=== PATIENT | female | born 1930 | race Caucasian/White ===

== ENCOUNTER 2017-11-23 16:30 | Inpatient (IN) ==
[2017-11-23] MEDS ORDERED: SALINE FLUSH 10ml SYRINGE IVF PRN (17:24)
[2017-11-23] MEDS ORDERED: NS 1,000 ML IV ONE (17:24)
[2017-11-23] MEDS ORDERED: FentaNYL 100 MCG/2 ML INJECTION IVP ONE (17:24)
[2017-11-23] MEDS ORDERED: ONDANSETRON 4 MG/2 ML INJECTION IVP ONE (17:24)
--- NOTE | 2017-11-23 17:25 | Emergency Department Report ---
Nausea/Vomiting/Diarrhea HPI - General Chief complaint: Nausea/Vomiting/Diarrhea <Osman Abdul - 11/23/17 20:14> Stated complaint: weakness, nausea <Osman Abdul - 11/23/17 20:14> Time Seen by Provider: 11/23/17 17:24 <FrankoOsman Sorensen 11/23/17 20:14> Source: patient <Ayden Alcocer - 11/23/17 17:42> Mode of arrival: ambulatory <Ayden Alcocer - 11/23/17 17:42> Limitations: no limitations <Ayden Alcocer - 11/23/17 17:42> - History of Present Illness HPI Narrative: Patient is an 87-year-old female presents the ER for evaluation of diarrhea and nausea and vomiting. Patient has been in her usual state of good health today, approximately 2 hours prior to arrival patient's developed originally diarrhea with some abdominal cramping, and is now on associated nausea and vomiting. Patient hasn't eating anything that somebody else's not eaten, no fevers no chills no other original signs or symptoms. EMS was called and patient was brought to the ER for evaluation <Ayden Alcocer - 11/23/17 17:42> - Related Data Home Medications Medication Instructions Recorded Confirmed Metoprolol Succinate [Toprol Xl] 25 mg PO DAILY 11/23/17 11/23/17 Triamterene/Hctz 37.5/25 Tab 1 tab PO DAILY 11/23/17 11/23/17 [MAXZIDE-25 eqv] <FrankoOsman - 11/23/17 20:14> Allergies Allergy/AdvReac Type Severity Reaction Status Date / Time Sulfa (Sulfonamide Allergy Mild Verified 11/23/17 16:50 Antibiotics) <FrankoOsman Sorensen - 11/23/17 20:14> Review of Systems Constitutional: Reports: weakness. Denies: fever, chills <Lynne Alcocern Marck - 11/23/17 18:15> Eyes: Denies: eye discharge, vision change <Lynne Alcocern Marck - 11/23/17 18:15> ENT: Denies: ear pain, throat pain, dental pain <Lynne Alcocern Marck - 11/23/17 18 :15> Cardiovascular: Denies: chest pain, palpitations, dyspnea on exertion <Ayden Alcocer Q - 11/23/17 18:15> Respiratory: Denies: cough, dyspnea, wheezes <Ayden Alcocer Q - 11/23/17 18:15 > Gastrointestinal: Reports: abdominal pain, nausea, vomiting, diarrhea, hematochezia <Ayden Alcocer Q - 11/23/17 18:15> Genitourinary: Reports: dysuria. Denies: frequency <Ayden Alcocer Q - 18:15> Musculoskeletal: Denies: back pain <Ayden Alcocer Q - 11/23/17 18:15> Neurological: Denies: headache, weakness, numbness <Ayden Alcocer Q - 18:15> Psychiatric: Denies: anxiety, depression <Ayden Alcocer Q - 11/23/17 18:15> Endocrine: Denies: fatigue, heat or cold intolerance <Ayden Alcocer Q - 18:15> Hematological/Lymphatic: Denies: easy bleeding <Ayden Alcocer Q - 11/23/17 18: 15> Allergic/Immunologic: Denies: facial swelling <Ayden Alcocer Q - 11/23/17 18: 15> [facility] Patient Stated Medical History Cataracts Yes Hypertension Yes Osteoarthritis Yes <Osman Abdul H - 11/23/17 20:14> - Social History Smoking status: Never smoker <Ayden Alcocer Q - 11/23/17 18:15> Substance use type: does not use <Ayden Alcocer Q - 11/23/17 18:15> Alcohol intake frequency: does not drink <Ayden Alcocer Q - 11/23/17 18:15> Physical Exam - General General appearance: alert, in no apparent distress <Ayden Alcocer Q - 18:15> - Eye Eye exam: Present: PERRL, EOMI <Ayden Alcocer Q - 11/23/17 18:15> - ENT ENT exam: Present: normal oropharynx, mucous membranes moist, TM's normal bilaterally <Ayden Alcocer Q - 11/23/17 18:15> - Neck Neck exam: Present: full ROM, trachea midline. Absent: tenderness <Ayden Alcocer Q - 11/23/17 18:15> - Chest Chest inspection: Present: symmetric chest wall rise. Absent: tenderness < Lynne Alcocern Q - 11/23/17 18:15> - Respiratory Respiratory exam: Present: normal lung sounds bilaterally. Absent: respiratory distress, wheezes, stridor <Lynne Alcocern Q - 11/23/17 18:15> - Cardiovascular Cardiovascular exam: Present: regular rate, normal rhythm, normal heart sounds <Lynne Alcocern Q - 11/23/17 18:15> - Abdominal Exam Abdominal exam: Present: soft, distention (mild diffuse tenderness located in the left lower quadrant), tenderness, normal bowel sounds <Lynne Alcocern Q - 11/23/17 18:15> Abdominal tenderness: Present: LLQ <Lynne Alcocern Q - 11/23/17 18:15> - Back Exam Back exam: Present: full ROM <Ayden Alcocer Q - 11/23/17 18:15> - Skin Skin exam: Present: warm, dry <Ayden Alcocer Q - 11/23/17 18:15> - Neurological Exam Neurological exam: Present: alert, oriented X3 <Ayden Alcocer Q - 11/23/17 18: 15> - Psychiatric Psychiatric exam: Present: normal affect, normal mood <Ayden Alcocer Q - 11/23 18:15> Course Vital Signs Temperature 97.7 F 11/23/17 16:40 Pulse Rate 59 L 11/23/17 16:40 Respiratory Rate 20 11/23/17 16:40 Blood Pressure 122/60 11/23/17 16:40 Pulse Oximetry 96 11/23/17 16:40 Temperature 97.7 F 11/23/17 16:40 Pulse Rate 72 11/23/17 19:33 Respiratory Rate 20 11/23/17 17:37 Blood Pressure 103/51 11/23/17 19:33 Pulse Oximetry 93 11/23/17 19:33 <Osman Abdul - 11/23/17 20:14> Nausea/Vomiting/Diarrhea - [facility] Narrative Medical decision making narrative: CBC shows elevated white blood cell count with mild left shift and bands and neutrophils. CMP is essentially normal, UA shows obvious UTI. CT scan shows significant colonic wall and mucosal thickening with adjacent pericolic stranding of the colon from the level of the splenic flexure through the sigmoid colon. Patient does have visible diverticula but they do not appear to be involved. No obvious signs of abscess or free fluid. Case is discussed with Dr. Lio Jiang, we will start on Flagyl and Cipro, IV fluids, and continue therapy as an inpatient <Osman Abdul - 11/23/17 20:14> - Medical Records Attestation: I reviewed the patient's medical records. <Ayden Alcocer Q - 18:15> - Lab Data Attestation: I reviewed the patient's lab results. <Ayden Alcocer Q - 18:15> Result diagrams: 11/23/17 18:37 11/23/17 18:37 <AbdulOsman patel - 11/23/17 20:14> Lab Results 11/23/17 11/23/17 11/23/17 Range/Units 18:37 18:37 19:14 WBC 14.6 H (4.5-11.0) T/MM3 RBC 4.10 (4.00-5.20) M/MM3 Hgb 12.4 (12-16) GM/DL Hct 37.9 (36-46) % MCV 92.4 (80-100) UM3 MCH 30.2 (26-34) UUG MCHC 32.7 (31-37) GM/DL RDW Std Deviation 46.3 (36.9-50.2) FL Plt Count 254 (130-400) T/MM3 MPV 9.7 (9.4-12.4) UM3 Immature Gran % (Auto) Not performed Neut % (Auto) Not performed Lymph % (Auto) Not performed [place] % (Auto) Not performed Eos % (Auto) Not performed Baso % (Auto) Not performed Neut # (Auto) Not performed Lymph # (Auto) Not performed [place] # (Auto) Not performed Eos # (Auto) Not performed Baso # (Auto) Not performed Abs Immat Gran (auto) Not performed Neutrophils % (Manual) 81.0 H (33-66) % Band Neutrophils % 7.0 H (0-6) % Lymphocytes % (Manual) 6.0 L (23-45) % Monocytes % (Manual) 6.0 (0-9.0) % Neutrophils # (Manual) 11.8 H (1.8-7.7) T/MM3 Band Neutrophils # 1.0 T/MM3 Lymphocytes # (Manual) 0.9 L (1-4.8) T/MM3 Monocytes # (Manual) 0.9 H (0-0.8) T/MM3 RBC Morph Comment Normal Turbidity < 20 (0-20) Sodium 144 (136-146) MEQ/L Potassium 3.9 (3.6-5) MEQ/L Chloride 108 H (98-107) MEQ/L Carbon Dioxide 27 (22-30) MEQ/L Anion Gap 9 (5-15) meq/L BUN 21.0 H (7-17) MG/DL Creatinine 1.1 (0.7-1.2) mg/dL GFR Calculation 47 BUN/Creatinine Ratio 19 (6-26) RATIO Glucose 127 H (65-110) MG/DL Calculated Osmolality 282 H (261-280) MOSM/KG Calcium 8.2 L (8.4-10.2) MG/DL Total Bilirubin 0.80 (0.20-1.30) MG/DL Icterus Index < 2 (0-7) AST 22 (14-36) U/L ALT 13 (1-35) U/L Alkaline Phosphatase 91 (38-126) U/L Troponin I < 0.012 (0-0.12) ng/ml Total Protein 6.1 L (6.3-8.2) g/dL Albumin 3.5 (3.5-5.0) g/dL Globulin 2.6 (2.4-3.6) G/DL Albumin/Globulin Ratio 1.3 (1.1-2.2) RATIO Lipase 149 (23-300) U/L Specimen Hemolysis < 15 (0-25) Ur Collection Type Urine, void-cc/notcc Urine Color Yellow (YELLOW) Urine Clarity Cloudy Urine pH 6.0 (5.0-8.0) Ur Specific [place] 1.015 (1.015-1.025) Urine Protein Negative (NEGATIVE) Urine Glucose (UA) Negative (NEGATIVE) Urine Ketones Trace A (NEGATIVE) Urine Occult Blood 3+ A (NEGATIVE) Urine Nitrate Positive A (NEGATIVE) Urine Bilirubin Negative (NEGATIVE) Urine Urobilinogen 0.2 (NORMAL) EU/DL Ur Leukocyte Esterase 1+ A (NEGATIVE) Urine RBC None seen (0-3) /HPF Urine WBC 10-20 H (0-5) /HPF Urine Bacteria 3+ H (NEGATIVE) Ur Culture Indicated? Cult reflexed &setup <FrankoOsman 11/23/17 20:14> - Radiology Data Attestation: I reviewed the patient's radiology results. <Ayden Alcocer Q - 18:15> Disposition Clinical Impression: Colitis Urinary tract infection Qualifiers: Urinary tract infection type: acute cystitis Hematuria presence: without hematuria Qualified Code(s): N30.00 - Acute cystitis without hematuria <Osman Abdul 11/23/17 20:14> Disposition: 02 To [facility] [place] Care <Osman Abdul 11/23/17 20:14> Condition: Improved <Osman Abdul 11/23/17 20:14> Instructions: <Osman Abdul 11/23/17 20:14> Prescriptions: No Action Triamterene/Hctz 37.5/25 Tab [MAXZIDE-25 eqv] 1 tab PO DAILY Metoprolol Succinate [Toprol Xl] 25 mg PO DAILY <Osman Abdul 20:14> Referrals: Hayden Ruiz MD [Primary Care Provider] - <Osman Abdul 11/23/17 20:14> Forms: <Osman Abdul 11/23/17 20:14> - Seen By: physician <Osman Abdul 11/23/17 20:14>
--- OUTSIDE RECORDS SUMMARY | 2017-11-23 17:31 | External Medical Summary | Referral Summary ---
:1930 Author Organization [facility] [place] [address] Care Team Providers Name Role Phone Hayden Ruiz V Primary Care Physician Encounter [facility] [id number] Date(s): 01/05/17 - 01/05/17 [facility] [address] [place] [phone] Discharge Diagnosis: Poor Balance Discharge Diagnosis: Benign essential hypertension Discharge Diagnosis: Bilateral impacted cerumen Discharge Diagnosis: Soft corn Discharge Diagnosis: Foot deformity Discharge Disposition: 01-Home or Self Care Attending Physician: Hayden Ruiz MD Admitting Physician: Hayden Ruiz MD Vital Signs Most recent to oldest [Reference Range]: 1 Peripheral Pulse Rate [60-100 bpm] 71 bpm (01/05/17 10:22 AM) Respiratory Rate [14-20 br/min] 18 br/min (01/05/17 10:22 AM) Blood Pressure [90-140/60-90 mmHg] 136/62 mmHg (01/05/17 10:22 AM) Problem List Condition Effective Dates Status Health Status Informant Benign essential hypertension Active (disorder)(Confirmed) Breast cancer(Confirmed) Active GI bleeding(Confirmed) Active Hearing loss (disorder)(Confirmed) Active HEARING LOSS(Confirmed) Active HX of breast cancer(Confirmed) Active Hypertension(Confirmed) Active Osteoporosis (disorder)(Confirmed) Active Osteoporosis(Confirmed) Active Urge incontinence(Confirmed) Active Urge incontinence of urine Active (finding)(Confirmed) Allergies, Adverse Reactions, Alerts Substance Reaction Severity Status sulfamethoxazole RASH Active lisinopril cough Active Medications Metoprolol Succinate ER 25 mg oral tablet, extended release 25 mg 1 tabs, Oral, Daily, # 30 tabs, 5 Refill(s), Pharmacy: [id number] Start Date: 01/05/17 Status: Orderedtriamterene-hydrochlorothiazide 37.5 mg-25 mg oral capsule See Instructions, TAKE ONE CAPSULE BY MOUTH ONCE DAILY, # 30 caps, 5 Refill(s), [id number] Start Date: 01/05/17 Status: Ordered Results Chemistry Most recent to oldest [Reference Range]: 1 Sodium Lvl [135-144 mEq/L] 142 mEq/L (01/05/17 11:30 AM) Potassium Lvl [3.5-5.2 mEq/L] 3.9 mEq/L (01/05/17 11:30 AM) Chloride [99-111 mEq/L] 103 mEq/L (01/05/17 11:30 AM) CO2 [22-31 mEq/L] 30 mEq/L (01/05/17 11:30 AM) AGAP [3-20 mEq/L] 9 mEq/L (01/05/17 11:30 AM) BUN [10-20 mg/dL] 22 mg/dL *HI* (01/05/17 11:30 AM) Glucose Lvl [70-99 mg/dL] 98 mg/dL (01/05/17 11:30 AM) Creatinine Lvl [0.57-1.11 mg/dL] 0.98 mg/dL (01/05/17 11:30 AM) eGFR [>60 mL/min] 54 mL/min 1 *ABN* (01/05/17 11:30 AM) Calcium Lvl [8.4-10.2 mg/dL] 9.6 mg/dL (01/05/17 11:30 AM) 1Result Comment: Multiply eGFR results by 1.21 for race. Immunizations Given and Recorded Vaccine Date Status Refusal Reason pneumococcal 13-valent conjugate vaccine 07/07/16 Given influenza virus vaccine, inactivated 04/01/16 Given tetanus/diphth/pertuss (Tdap) adult/adol 01/19/15 Given Procedures Procedure Date Related Diagnosis Body Site Colonoscopy past hx Dr Mayes at [place] 12/2010 EGD 12/2010 Breast lumpectomy 2004 Left ankle ORIF 1989 repair of dog bite, right hand Social History Social History Type Response Smoking Status Former smoker1 entered on: 12/14/13 1Quit>60 yrs ago Assessment and Plan Extracted from: Title: 6 Month CDM HTN Author: Hayden Ruiz MD Date: 01/05/17 Impression and Plan Diagnosis Benign essential hypertension ([id number] I10, Discharge, Medical). Bilateral impacted cerumen (KAL22-PB H61.23, Discharge, Medical). Foot deformity (CWM28-CP M21.969, Discharge, Medical). Poor Balance (LGU98-KJ R26.89, Discharge, Medical). Soft corn ([id number] L84, Discharge, Medical). Orders Orders (Selected) Outpatient Orders Future (On Hold) BMP: Prescriptions Prescribed Metoprolol Succinate ER 25 mg oral tablet, extended release: 25 mg=1 tabs, Oral , Daily, 30 tabs, 5 Refill(s) triamterene-hydrochlorothiazide 37.5 mg-25 mg oral capsule: See Instructions, TAKE ONE CAPSULE BY MOUTH ONCE DAILY, 30 caps, 5 Refill(s).
--- OUTSIDE RECORDS SUMMARY | 2017-11-23 17:31 | External Medical Summary | Referral Summary ---
:1930 [facility] [address] [place] [address] [place] [address] Care Team Providers Name Role Phone Hayden Ruiz V Primary Care Physician Encounter [facility] Date(s): 07/07/16 - 07/07/16 [facility] [place] [phone] [place] Discharge Diagnosis: HX of breast cancer Discharge Diagnosis: Osteoporosis (disorder) Discharge Diagnosis: Benign essential hypertension Discharge Disposition: 01-Home or Self Care Attending Physician: Hayden Ruiz MD Admitting Physician: Hayden Ruiz MD Vital Signs Most recent to oldest [Reference Range]: 1 Temperature Oral [35.8-37.3 degC] 36.8 degC (07/07/16 9:35 AM) Peripheral Pulse Rate [60-100 bpm] 88 bpm (07/07/16 9:35 AM) Respiratory Rate [14-20 br/min] 16 br/min (07/07/16 9:35 AM) Blood Pressure [90-140/60-90 mmHg] 158/80 mmHg *HI* (07/07/16 9:35 AM) Problem List Condition Effective Dates Status Health Status Informant Benign essential hypertension Active (disorder)(Confirmed) Breast cancer(Confirmed) Active GI bleeding(Confirmed) Active Hearing loss (disorder)(Confirmed) Active HEARING LOSS(Confirmed) Active HX of breast cancer(Confirmed) Active Hypertension(Confirmed) Active Osteoporosis (disorder)(Confirmed) Active Osteoporosis(Confirmed) Active Urge incontinence(Confirmed) Active Urge incontinence of urine Active (finding)(Confirmed) Allergies, Adverse Reactions, Alerts Substance Reaction Severity Status lisinopril cough Active sulfamethoxazole RASH Active Medications Metoprolol Succinate ER 25 mg oral tablet, extended release 25 mg 1 tabs, Oral, Daily, # 90 tabs, 0 Refill(s), Pharmacy: [id number] Start Date: 07/07/16 Status: Ordered Results No data available for this section Immunizations Given and Recorded Vaccine Date Status Refusal Reason tetanus/diphth/pertuss (Tdap) adult/adol 01/19/15 Given influenza virus vaccine, inactivated 04/01/16 Given pneumococcal 13-valent conjugate vaccine 07/07/16 Given Procedures Procedure Date Related Diagnosis Body Site Colonoscopy past hx Dr Mayes at [place] 12/2010 EGD 12/2010 Breast lumpectomy 2004 Left ankle ORIF 1989 repair of dog bite, right hand Social History Social History Type Response Smoking Status Former smoker1 1Quit>60 yrs ago Assessment and Plan Extracted from: Title: 6 Month CDM Author: Hayden Ruiz MD Date: 07/07/16 Impression and Plan Diagnosis Benign essential hypertension ([id number] I10, Discharge, Medical). HX of breast cancer (NZR83-IH Z85.3, Discharge, Medical). Osteoporosis (disorder) (IZW46-UH M81.0, Discharge, Medical). Orders Orders (Selected) Outpatient Orders Future (On Hold) Comprehensive Metabolic Panel: Fasting Lipid Profile: Prescriptions Prescribed Metoprolol Succinate ER 25 mg oral tablet, extended release: 25 mg=1 tabs, Oral , Daily, 90 tabs, 0 Refill(s).
[2017-11-23] MEDS ORDERED: IOHEXOL 300mg/ml 75ml INJECTION ONE (19:01)
[2017-11-23] MEDS ORDERED: SALINE FLUSH 10ml SYRINGE ONE (19:01)
[2017-11-23] MEDS ORDERED: MetroNIDAZOLE PB 500 MG/100 ML BAG IV ONE (20:12)
[2017-11-23] MEDS ORDERED: Oxycodone/Acetaminophen 5/325 1 TAB PO PRN (20:49)
[2017-11-23] MEDS ORDERED: ONDANSETRON 4 MG/2 ML INJECTION IVP PRN (20:49)
[2017-11-23] MEDS ORDERED: MORPHINE SULFATE 4mg INJECTION IVP PRN (20:49)
[2017-11-23 21:07] VITALS: BMI 25.0
--- NOTE | 2017-11-23 21:22 | History & Physical Report ---
History of Present Illness Date: 11/23/17 Chief complaint: abdominal pain HPI: Patient seen via telemedicine with nursing assistance on 11/23/2017 Mrs. Seth is an 87yo woman from home with her . She has a h/o HTN and GI bleed in the past with endoscopies no source. Notes onset today of n/f/abd pain and diarrhea. No CP or SOB or syncope. No chills. VERY HARD OF HEARING. Some of history from the nurse who spoke with her daughter before leaving and then by phone. is at the bedside. No prior belly surgeries Review of Systems All systems PM: 10-point ROS was reviewed, no additional remarkable complaints except Past Medical History Family History Updates: no early CAD, but CAD Family History: As Above - Social History Smoking status: Never smoker Substance use type: does not use Alcohol intake frequency: does not drink Housing: house Household members: spouse Medications Home Medications Medication Instructions Recorded Confirmed Type Metoprolol Succinate [Toprol Xl] 25 mg PO DAILY 11/23/17 11/23/17 History Triamterene/Hctz 37.5/25 Tab 1 tab PO DAILY 11/23/17 11/23/17 History [MAXZIDE-25 eqv] Allergies Allergy/AdvReac Type Severity Reaction Status Date / Time Sulfa (Sulfonamide Allergy Mild Verified 11/23/17 16:50 Antibiotics) Exam Vital Signs: Temperature 97.3 F 11/23/17 20:48 Pulse Rate 72 11/23/17 20:48 Respiratory Rate 16 11/23/17 20:48 Blood Pressure 125/52 11/23/17 20:48 Pulse Oximetry 92 11/23/17 20:48 Telemetry Rhythm: Sinus Rhythm Height/Weight/BMI: Height 1.57 m Weight 62 kg Body Mass Index 25.0 - Constitutional Present: no acute distress - Routine HEENT Exam Head: Present: normocephalic, atraumatic Eye: Present: EOMI, PERRL - Routine Neck Exam Absent: JVD - Routine Respiratory Exam Absent: accessory muscle use - Routine Cardiovascular Exam Present: RRR, S1, S2, no murmur - Routine Abdominal Exam Present: soft Comments: hyperactive bowel sounds with tenderness, but no rebound or guarding - Routine Extremities Exam Present: clubbing. Absent: cyanosis, edema - Routine Skin Exam Present: intact - Routine Neurological Exam Present: alert, oriented X3, CN II-XII intact Results - Labs CBC & Chem 7: 11/23/17 18:37 11/23/17 18:37 Microbiology Results: Microbiology 11/23/17 19:14 Urine, Voided (Cc/notcc) Urine Culture - Preliminary Culture Initiated - Results Pending Assessment and Plan (1) HTN (hypertension) Current visit: Yes Status: Acute (2) Colitis Current visit: Yes Status: Acute (3) Urinary tract infection Current visit: Yes Status: Acute Assessment and Plan: 1. Acute colitis CT confirmed--admit to inpatient with cipro/flagyl, IVF and repeat AM labs. Prns for pain and nausea. Clear liquids only. No recent antibiotics but if indeed true diarrhea upon admission would check Cdiff. Check lactate with no definite sepsis. 2. h/o GI bleeds with stable Hgb now. 3. Essential HTN, monitor holding diuretic, but continue bblocker. DVT Prophylaxis: SCD's Resuscitation Status: Full Code - Physician Narrative Narrative: Date: 11/23/17 Time: 2118 Hospital Course Summary Disclaimer: The visit summary below is not to be considered part of the above Progress Note.
[2017-11-23] MEDS: LR 1,000 ML IV SCH (21:37)
[2017-11-23] MEDS: MetroNIDAZOLE PB 500 MG/100 ML BAG IV SCH (21:38)
[2017-11-23] MEDS: CIPROFLOXACIN IVPB 400 MG/200 ML BAG IV SCH (22:46)
[2017-11-24] MEDS: MetroNIDAZOLE PB 500 MG/100 ML BAG IV SCH ×4 (04:32→21:09)
--- NOTE | 2017-11-24 08:28 | CT Scan Report ---
Indication: left-sided abdominal pain nausea vomiting diarrhea PROCEDURE: CT abdomen pelvis w con: Encounter: Initial Comparison: December 24, 2010 Technique: Axial CT images were performed through the abdomen and pelvis after the administration of intravenous contrast. Coronal and sagittal two-dimensional reformats. Automated Exposure Control and Iterative Reconstruction dose reducing techniques were utilized. Contrast: Omnipaque 300 74 mL Findings: Mild atelectasis or scarring in the lung bases. Mild cardiomegaly. Multiple liver cysts. No enhancing liver mass or bile duct dilatation. Gallbladder is unremarkable. The spleen, pancreas and adrenal glands are within normal limits. Stable right renal cyst. Kidneys are otherwise normal. No abdominal or pelvic lymphadenopathy. Bladder is normal. Uterus is grossly normal. Chronic markings enlarged collateral vein extending from the portosplenic confluence into the left pelvis. Sigmoid diverticulosis. There is significant inflammation surrounding the descending colon starting just below the splenic flexure extending to the sigmoid. Multiple diverticula are present. No evidence of a bowel obstruction. The appendix is normal. Bone windows show no acute findings. Chronic appearing L1 and T10 compression fractures. Impression: Extensive left-sided colitis could be infectious, inflammatory or ischemic. There is a preliminary report by virtual radiologic. .
[2017-11-24] MEDS: LR 1,000 ML IV SCH ×2 (09:16→23:25)
[2017-11-24] MEDS: ENOXAPARIN 40 MG/0.4 ML INJECTION SQ SCH (09:39)
[2017-11-24] MEDS: CIPROFLOXACIN IVPB 400 MG/200 ML BAG IV SCH ×2 (12:01→23:26)
[2017-11-25] MEDS: MetroNIDAZOLE PB 500 MG/100 ML BAG IV SCH ×4 (02:40→22:09)
[2017-11-25] MEDS: ENOXAPARIN 40 MG/0.4 ML INJECTION SQ SCH (09:59)
[2017-11-25] MEDS: CIPROFLOXACIN IVPB 400 MG/200 ML BAG IV SCH (13:41)
[2017-11-25] MEDS: LR 1,000 ML IV SCH ×3 (15:55→23:00)
--- NOTE | 2017-11-25 17:05 | Progress Note ---
- Date 11/25/17 Subjective: A pleasant 87-year-old female patient resting in bed at the time of interview. Patient reports improvement in abdominal pain however continues to have a left- sided abdominal pain especially on palpation. WBC count improved to 12,300. Serum potassium 3.1, will be replaced. Patient tolerating clear liquid diet. Has not had a bowel movement since admission on 11/23/2017. Review of records showed patient had colonoscopy on 12/24/2010 which showed evidence of ischemic colitis involving splenic flexure along with sigmoid diverticulosis. Case discussed with general surgeon on-call, Dr. Monroy over the phone and consult placed for ischemic versus infectious left-sided colitis. Objective Vital signs: Temperature 97.6 F 11/25/17 16:00 Pulse Rate 70 11/25/17 16:00 Respiratory Rate 16 11/25/17 16:00 Blood Pressure 121/63 11/25/17 16:00 Pulse Oximetry 94 11/25/17 16:00 Height/Weight/BMI: Height 1.57 m Weight 64.8 kg Body Mass Index 25.0 - Additional findings Additional findings: General: Alert, awake, oriented to self and place. Not in acute distress. Head: Pupils equal, round, reactive to light and accommodation. Extraocular movements intact. Neck: No elevation in JVP. No pharyngeal erythema noted. Chest: The patient does not use accessory muscles for breathing. Lungs: Breath sounds audible on auscultation bilateral lung kumar. No wheezing , no rhonchi, no crepitations, no crackles. No pleural rub. CVS: S1, S2 heard on auscultation. Normal rate and rhythm. No murmur, no S3/S4 gallops. Abdomen: Soft, distended, tenderness to palpation noted in left upper quadrant , left lower quadrant. No rebound. Patient also has tenderness in left lower quadrant on deep palpation in right lower quadrant. Bowel sounds appreciated on auscultation. : No flank tenderness, no suprapubic distention or tenderness. Skin: No rashes, no induration, no erythema. Capillary refill less than 4 seconds. Extremities: No evidence of pedal edema bilateral lower extremities. No calf tenderness bilaterally. Palpable dorsalis pedis and posterior tibial pulses bilateral lower extremities. TOP TRIMMER: Strength 5/5 bilateral upper and lower extremities. Sensations intact. No slurred speech, no facial droop. No discernible focal neurological deficits. Results - Labs CBC & Chem 7: 11/25/17 04:48 11/25/17 04:48 Microbiology Results: Microbiology 11/23/17 19:14 Urine, Voided (Cc/notcc) Urine Culture - Final Escherichia coli Assessment and Plan (1) Colitis Current visit: Yes Status: Acute (2) Urinary tract infection Current visit: Yes Status: Acute (3) HTN (hypertension) Current visit: Yes Status: Chronic Assessment and Plan: Left-sided colitis seen on CT abdomen and corresponds with area of tenderness on exam. She has a history of ischemic colitis in the descending colon. UTI Hypertension Currently with borderline hypotension Gait instability-chronic Anemia Leukocytosis Mild hypoxia Plan Continue cautious IV fluids, IV Cipro and Flagyl. Monitor for GI bleeding. Case discussed with general surgeon on-call, Dr. Monroy and consult placed. Patient placed nothing by mouth. CT angiogram of abdomen and pelvis ordered. BUN 14, serum creatinine 0.9. We will stop Lovenox. Patient started on heparin 5000 units subcutaneous 3 times a day. UTI with pansensitive Escherichia coli on culture, continue ciprofloxacin IV. PT and OT consult GI panel if the patient develops diarrhea Hold hydrochlorothiazide Hold beta brown for systolic blood pressure less than 110 DO NOT RESUSCITATE per patient request Incentive Spirometer CBC with differential, renal panel, magnesium tomorrow. C-reactive protein and pro-calcitonin today. DVT Prophylaxis: SCD's, SQ Heparin GI Prophylaxis: Protonix Resuscitation Status: Do Not Resuscitate - Time spent with patient Time with patient PN: 35 minutes - Physician Narrative Narrative: Date: 11/25/17 Time: 1644 Hospital Course Summary Disclaimer: The visit summary below is not to be considered part of the above Progress Note. Hospital Course: 11/24/2017 Left-sided colitis seen on CT abdomen and corresponds with area of tenderness on exam. She has a history of ischemic colitis in the descending colon. UTI Hypertension Currently with borderline hypotension Gait instability-chronic Anemia Leukocytosis Mild hypoxia Plan Agree with cautious IV fluids, IV Cipro and Flagyl. Monitor for GI bleeding. Await sensitivity of urine culture-Cipro will likely cover Escherichia coli UTI PT and OT consult SCDs for DVT prophylaxis-no Lovenox or heparin at this time because of history of GI bleeding with colitis GI panel if the patient develops diarrhea Hold hydrochlorothiazide Hold beta brown for systolic blood pressure less than 110 DO NOT RESUSCITATE per patient request Incentive Spirometer Chest x-ray if O2 needs increase liter Agree with clear liquid diet for now CBC with differential, renal panel, magnesium tomorrow. C-reactive protein and pro-calcitonin today.
[2017-11-25] MEDS ORDERED: IOHEXOL 350mg/ml 100ml INJECTION ONE (17:33)
[2017-11-25] MEDS ORDERED: SALINE FLUSH 10ml SYRINGE ONE (17:33)
--- NOTE | 2017-11-25 17:33 | General Surgery Consult Note ---
Consult date: 11/25/17 Attending Physician: Amanda Lo MD Reason for consult: other (left-side colon Infectious versus ischemic colitis) [facility] Medical History (Last Updated 11/25/17 @ 17:28 by Joe Monroy MD) HTN (hypertension) (Chronic Medical) Breast cancer, left breast () Treated with lumpectomy and radiation Ischemic colitis (2010) Medical History Updates: Polio Surgical History: * Left breast lumpectomy. 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) Substance use type: does not use Alcohol intake frequency: does not drink Housing: house Household members: spouse ( from ) Medications Home Medications Medication Instructions Recorded Confirmed Type Metoprolol Succinate [Toprol Xl] 25 mg PO DAILY 11/23/17 11/23/17 History Triamterene/Hctz 37.5/25 Tab 1 tab PO DAILY 11/23/17 11/23/17 History [MAXZIDE-25 eqv] Allergies Allergy/AdvReac Type Severity Reaction Status Date / Time Sulfa (Sulfonamide Allergy Mild Verified 11/23/17 16:50 Antibiotics) Review of Systems 10-point ROS: negative except for HPI and the following: - General General: Present: night sweats - Eyes/Ears/Nose/Throat Ear Nose Throat: Present: hearing problems - Gastrointestinal Gastrointestinal: Present: constipation, vomiting - Genitourinary Genitourinary: Present: pain with urination - Vital Signs Last Vital Signs Temp 97.8 F 11/25/17 17:00 Pulse 71 11/25/17 17:00 Resp 16 11/25/17 17:00 BP 119/64 11/25/17 17:00 Pulse Ox 92 11/25/17 17:00 - Laboratory Result Diagrams: 11/25/17 04:48 11/25/17 04:48 - Microbiogy Microbiology 11/23/17 19:14 Urine, Voided (Cc/notcc) Urine Culture - Final Escherichia coli
--- NOTE | 2017-11-25 18:49 | Consultation ---
DATE OF CONSULTATION 11/25/2017 CONSULTING PHYSICIAN Joe Monroy MD REQUESTING PHYSICIAN Dr. Lo REASON FOR CONSULTATION Left-sided colitis - infectious versus ischemic. IMPRESSION 1. Left-sided colitis - uncertain etiology but likely ischemic in nature given prior history of ischemic colitis in 2010. 2. Urinary tract infection. 3. Chronic hypertension. PLAN 1. I would recommend evaluation of the mesenteric vasculature with a CT angiogram of the abdomen and pelvis to see if there is any lesion that could be improved by endovascular intervention. 2. Continue IV antibiotics. Cipro and Flagyl do seem appropriate GI coverage. 3. Follow lab values. 4. Follow serial abdominal exams. She does currently have some rebound tenderness but I do not see evidence of involuntary guarding or an acute surgical abdomen currently. 5. Reshma would like to avoid a colonoscopy. I think this is also a good idea if she has active colitis since her perforation risk may be higher. HISTORY OF PRESENT ILLNESS Reshma is an 87-year-old female who was admitted to the hospital two days ago. On the morning of admission she had developed abdominal pain. It was located in the left lower quadrant. She had a difficult time describing the pain but said that it was not burning in nature. Her pain was 7 out of 10 at its worst. Now she denies any pain unless the area is palpated. She has a history of descending colitis that was thought to be ischemic in nature based on colonoscopy findings in 2010. She did have a constipated stool on the morning of admission but denies any blood with her stools or melanotic stools. She has not had any stools at the hospital and has had no diarrhea. A CT scan had been performed on admission that showed extensive left-sided colitis. She did report an episode of vomiting on the morning of admission. Based on her physical exam findings today and the prior CT report a surgical consultation was placed. PAST MEDICAL HISTORY, PAST SURGICAL HISTORY, ALLERGIES, MEDICATIONS, FAMILY HISTORY, SOCIAL HISTORY, REVIEW OF SYSTEMS, LABORATORY DATA, VITAL SIGNS See electronic consultation note. PHYSICAL EXAMINATION GENERAL: The patient is awake, alert, in no acute distress. HEENT: Sclerae clear. Extraocular muscles intact. NECK: Supple with a midline trachea. No lymphadenopathy or thyromegaly are noted. HEART: Regular rate and rhythm. LUNGS: Clear to auscultation bilaterally. ABDOMEN: Soft, tender in the left abdomen with some rebound tenderness in the left abdomen but no voluntary or involuntary guarding. No masses are noted. EXTREMITIES: No clubbing, cyanosis or edema. NEUROLOGIC: Cranial nerves II-XII are grossly intact. PSYCHIATRIC: Normal mood and affect. IMAGING CT scan of the abdomen and pelvis from 11/23/2017 was reviewed by report. See the EMR. Thank you for allowing me to participate in Mrs. Seth's care. I will follow along with you. CA
[2017-11-25] MEDS: POTASSIUM CHLORIDE PREMIX 10 MEQ/100 ML BAG IV SCH ×2 (19:00→20:18)
[2017-11-25] MEDS: HEPARIN SUB-Q 5,000units/0.5ml INJECTION SQ SCH (22:08)
[2017-11-26] MEDS: CIPROFLOXACIN IVPB 400 MG/200 ML BAG IV SCH ×3 (00:51→22:25)
[2017-11-26] MEDS: MetroNIDAZOLE PB 500 MG/100 ML BAG IV SCH ×4 (03:52→20:02)
--- NOTE | 2017-11-26 09:12 | CT Scan Report ---
Indication: concern for ischemic colitis PROCEDURE: CT angio abdomen pelvis: Encounter: Initial Comparison: CT dated November 23, 2017 Technique: CT angiography of the abdomen and pelvis was performed before and after the administration of intravenous contrast. Coronal and sagittal MIP reconstructed images were created and reviewed along with three-dimensional surface shaded volume rendered imaging of the abdominal aorta and arterial vasculature. This was created on a dedicated workstation by the technologist under the direction of the interpreting radiologist. Contrast: Omnipaque 350 100mL Findings: Small bilateral pleural effusions with lower lobe atelectasis. Noncontrast images show scattered arterial atherosclerotic plaque. Postcontrast images show no evidence of significant stenosis at the celiac or SMA origins. No aneurysm or dissection. Bilateral renal artery origins are patent without significant stenosis. CANDI origin is normal. No evidence of mesenteric arterial occlusion. No liver masses. Small hepatic cysts. Continued inflammation surrounding the left colon without significant change. There appears to be normal arterial supply to this area of the colon. No evidence of a mesenteric vein thrombosis. No bowel obstruction. Small amount of free fluid in the left abdomen and pelvis. Large dilated left gonadal vein is redemonstrated. Impression: No abdominal arterial occlusion or significant stenosis. No CT evidence of small or large bowel ischemia. The left colonic findings are most likely infectious or inflammatory. .
[2017-11-26] MEDS: HEPARIN SUB-Q 5,000units/0.5ml INJECTION SQ SCH ×2 (09:16→20:02)
[2017-11-26] MEDS ORDERED: POLYETHYL GLYCOL 3350 17gm PACKET PO ONE (10:00)
[2017-11-26] MEDS: LR 1,000 ML IV SCH (10:08)
[2017-11-26] MEDS: POTASSIUM CHLORIDE PREMIX 10 MEQ/100 ML BAG IV SCH ×2 (13:14→14:28)
--- NOTE | 2017-11-26 14:03 | Progress Note ---
DATE OF VISIT 11/26/2017 REASON FOR VISIT Follow abdominal pain and colitis. SUBJECTIVE Reshma says that she does not have any abdominal pain if she is at rest. She still has not had a bowel movement. She said that she would like something to eat. She does feel like her pain with palpation of the abdomen is improved from yesterday. With palpation, she reports her pain is about 3/10 in severity. It is slightly worse with rebound. OBJECTIVE VITAL SIGNS: Temperature 97.6, pulse 71, blood pressure 115/62, respiratory rate 16, oxygen saturation 92% on room air. GENERAL: The patient is awake and alert, in no acute distress. ABDOMEN: Soft, tender in the left abdomen with some localized rebound tenderness but no voluntary or involuntary guarding. Abdominal exam appears stable or slightly improved from yesterday. LABORATORY DATA White blood cell count has decreased to 10.9 with 76.6% neutrophils. IMAGING Report from CT angio on 11/25/2017 was reviewed. There was no abdominal arterial occlusion or significant stenosis and no CT evidence of small or large bowel ischemia. It was felt that the left colonic findings were more likely infectious or inflammatory. IMPRESSION Left-sided colitis - possibly infectious or inflammatory etiologies. This could be from diverticulitis. An inflammatory colitis such as ulcerative colitis or Crohn's disease is much less likely given the patient's advanced age. She still could have had a low flow state prior to admission that led to the possibility of ischemic colitis. PLAN 1. Restart clear liquid diet now. If she tolerates this, she could advance to a full liquid diet for dinner. I would consider a regular diet tomorrow if her abdominal pain continues to improve and lab values remain stable. 2. Encourage ambulation. 3. I will start her on MiraLAX b.i.d. since she has not had a bowel movement since prior to admission. Hopefully this will get her bowels working again. Laxative treatment could be deescalated. She did not wish to proceed with the suppositories or enemas currently. 4. Dr. Sena will be covering for the weekend. CA
--- NOTE | 2017-11-26 18:31 | Progress Note ---
- Date 11/26/17 Subjective: Patient resting in bed at the time of interview. Reports left-sided abdominal tenderness on palpation otherwise at rest, no reported abdominal pain. No reported nausea, no vomiting. Patient tolerating clear liquid diet. CT angiogram of abdomen and pelvis did not show any evidence of acute vessel obstruction. Case discussed with Dr. Bender. Patient on clear liquid diet for now and plan to advance to full liquid diet this evening as tolerated. Leukocytosis resolved, WBC count 10,900. Hemoglobin stable at 10.8. Serum potassium 3.2, will be replaced. Patient has not had a bowel movement since the day of admission, reports today that she had a bowel movement while waiting to be checked in at emergency room. Patient started on oral MiraLAX twice a day by surgery. Objective Vital signs: Temperature 97.4 F 11/26/17 15:20 Pulse Rate 72 11/26/17 15:20 Respiratory Rate 16 11/26/17 15:20 Blood Pressure 125/67 11/26/17 15:20 Pulse Oximetry 91 11/26/17 15:20 Height/Weight/BMI: Height 1.57 m Weight 64.5 kg Body Mass Index 25.0 - Additional findings Additional findings: General: Alert, awake, oriented to self and place. Not in acute distress. Head: Pupils equal, round, reactive to light and accommodation. Extraocular movements intact. Neck: No elevation in JVP. No pharyngeal erythema noted. Chest: The patient does not use accessory muscles for breathing. Lungs: Breath sounds audible on auscultation bilateral lung kumar. No wheezing , no rhonchi, no crepitations, no crackles. No pleural rub. CVS: S1, S2 heard on auscultation. Normal rate and rhythm. No murmur, no S3/S4 gallops. Abdomen: Soft, distended, tenderness to palpation noted in left upper quadrant , left lower quadrant. No rebound. Bowel sounds appreciated on auscultation. : No flank tenderness, no suprapubic distention or tenderness. Skin: No rashes, no induration, no erythema. Capillary refill less than 4 seconds. Extremities: No evidence of pedal edema bilateral lower extremities. No calf tenderness bilaterally. Palpable dorsalis pedis and posterior tibial pulses bilateral lower extremities. ACT ENGLISH TUTOR: Strength 5/5 bilateral upper and lower extremities. Sensations intact. No slurred speech, no facial droop. No discernible focal neurological deficits. Results - Labs CBC & Chem 7: 11/26/17 04:24 11/26/17 04:24 Microbiology Results: Microbiology 11/23/17 19:14 Urine, Voided (Cc/notcc) Urine Culture - Final Escherichia coli Assessment and Plan (1) Colitis Current visit: Yes Status: Acute (2) Urinary tract infection Current visit: Yes Status: Acute (3) HTN (hypertension) Current visit: Yes Status: Chronic Assessment and Plan: Left-sided infectious versus inflammatory colitis seen on CT abdomen UTI Hypertension Currently with borderline hypotension Gait instability-chronic Anemia Leukocytosis Mild hypoxia Plan Continue cautious IV fluids, IV Cipro and Flagyl. Monitor for GI bleeding. Case discussed with general surgeon on-call, Dr. Monroy. Diet advance to clear liquids, and full liquids tonight as tolerated. Patient started on oral MiraLAX twice a day to assist with constipation. CT angiogram of abdomen and pelvis shows evidence of infectious versus inflammatory colitis, no evidence of obstruction or findings suggestive of ischemic colitis. Continue heparin 5000 units subcutaneous 2 times a day. UTI with pansensitive Escherichia coli on culture, continue ciprofloxacin IV. PT and OT consult Hold hydrochlorothiazide Hold beta brown for systolic blood pressure less than 110 DO NOT RESUSCITATE per patient request Incentive Spirometer DVT Prophylaxis: SQ Heparin GI Prophylaxis: Protonix Resuscitation Status: Do Not Resuscitate - Time spent with patient Time with patient PN: 35 minutes - Physician Narrative Narrative: Date: 11/26/17 Time: 1827 Hospital Course Summary Disclaimer: The visit summary below is not to be considered part of the above Progress Note. Hospital Course: 11/24/2017 Agree with cautious IV fluids, IV Cipro and Flagyl. Monitor for GI bleeding. Await sensitivity of urine culture-Cipro will likely cover Escherichia coli UTI PT and OT consult SCDs for DVT prophylaxis-no Lovenox or heparin at this time because of history of GI bleeding with colitis 11/25/2017 Continue cautious IV fluids, IV Cipro and Flagyl. Monitor for GI bleeding. Case discussed with general surgeon on-call, Dr. Monroy and consult placed. Patient placed nothing by mouth. CT angiogram of abdomen and pelvis ordered. BUN 14, serum creatinine 0.9. We will stop Lovenox. Patient started on heparin 5000 units subcutaneous 3 times a day. UTI with pansensitive Escherichia coli on culture, continue ciprofloxacin IV. 11/26/2017 Continue cautious IV fluids, IV Cipro and Flagyl. Monitor for GI bleeding. Case discussed with general surgeon on-call, Dr. Monroy. Diet advance to clear liquids, and full liquids tonight as tolerated. Patient started on oral MiraLAX twice a day to assist with constipation. CT angiogram of abdomen and pelvis shows evidence of infectious versus inflammatory colitis, no evidence of obstruction or findings suggestive of ischemic colitis. Continue heparin 5000 units subcutaneous 2 times a day. UTI with pansensitive Escherichia coli on culture, continue ciprofloxacin IV.
[2017-11-26] MEDS: POLYETHYL GLYCOL 3350 17gm PACKET PO SCH (20:02)
[2017-11-27] MEDS: MetroNIDAZOLE PB 500 MG/100 ML BAG IV SCH ×4 (02:23→20:55)
[2017-11-27] MEDS: HEPARIN SUB-Q 5,000units/0.5ml INJECTION SQ SCH ×2 (08:39→20:54)
[2017-11-27] MEDS: POLYETHYL GLYCOL 3350 17gm PACKET PO SCH ×2 (08:40→20:56)
[2017-11-27] MEDS: LR 1,000 ML IV SCH ×2 (08:40→09:26)
[2017-11-27] MEDS: CIPROFLOXACIN IVPB 400 MG/200 ML BAG IV SCH ×2 (11:12→22:57)
--- NOTE | 2017-11-27 18:40 | Progress Note ---
- Date 11/27/17 Subjective: Patient resting in bed, subjectively states abdominal discomfort improving. After being constipated for 4 days and with supplementation with MiraLAX, patient had a large volume bowel movement today, nursing staff performed a GI panel which was found to be positive for C. difficile, Escherichia coli. Clinically, patient does not have findings suggestive of C. difficile colitis, especially with constipation. With this, patient will not be placed under contact precautions for C. difficile. Patient already on Flagyl antibiotic which will be continued. Patient tolerating full liquids. Diet progress to regular diet. Objective Vital signs: Temperature 97.3 F 11/27/17 15:00 Pulse Rate 66 11/27/17 15:00 Respiratory Rate 14 11/27/17 15:00 Blood Pressure 112/66 11/27/17 15:00 Pulse Oximetry 90 11/27/17 15:00 Height/Weight/BMI: Height 1.57 m Weight 66 kg Body Mass Index 25.0 - Additional findings Additional findings: General: Alert, awake, oriented to self and place. Not in acute distress. Head: Pupils equal, round, reactive to light and accommodation. Extraocular movements intact. Neck: No elevation in JVP. No pharyngeal erythema noted. Chest: The patient does not use accessory muscles for breathing. Lungs: Breath sounds audible on auscultation bilateral lung kumar. No wheezing , no rhonchi, no crepitations, no crackles. No pleural rub. CVS: S1, S2 heard on auscultation. Normal rate and rhythm. No murmur, no S3/S4 gallops. Abdomen: Soft, not distended, minimal tenderness to palpation noted in left lower quadrant. No rebound. Bowel sounds appreciated on auscultation. : No flank tenderness, no suprapubic distention or tenderness. Skin: No rashes, no induration, no erythema. Capillary refill less than 4 seconds. Extremities: No evidence of pedal edema bilateral lower extremities. No calf tenderness bilaterally. Palpable dorsalis pedis and posterior tibial pulses bilateral lower extremities. Results - Labs CBC & Chem 7: 11/27/17 09:52 11/27/17 09:52 Microbiology Results: Microbiology 11/23/17 19:14 Urine, Voided (Cc/notcc) Urine Culture - Final Escherichia coli Assessment and Plan (1) Colitis Current visit: Yes Status: Acute (2) Urinary tract infection Current visit: Yes Status: Acute (3) HTN (hypertension) Current visit: Yes Status: Chronic Assessment and Plan: Left-sided infectious versus inflammatory colitis seen on CT abdomen UTI Hypertension Currently with borderline hypotension Gait instability-chronic Anemia Leukocytosis Mild hypoxia Plan Continue cautious IV fluids, IV Cipro and Flagyl. Monitor for GI bleeding. After 4 days of constipation, patient finally had large volume bowel movement and GI panel showed positive Escherichia coli and C. difficile. Clinically, findings not concerning for C. difficile. We will continue antibiotics as above. General surgeon Dr. Monroy on board. Patient tolerating full liquids. Diet advanced to regular diet. CT angiogram of abdomen and pelvis performed on 11/25/2017 shows evidence of infectious versus inflammatory colitis, no evidence of obstruction or findings suggestive of ischemic colitis. Continue heparin 5000 units subcutaneous 2 times a day. UTI with pansensitive Escherichia coli on culture, continue ciprofloxacin IV. Serum potassium 3.4, will provide 40 meq and oral potassium chloride 1. PT and OT consult Hold hydrochlorothiazide Hold beta brown for systolic blood pressure less than 110 DO NOT RESUSCITATE per patient request Incentive Spirometer DVT Prophylaxis: SQ Heparin GI Prophylaxis: Protonix Resuscitation Status: Do Not Resuscitate - Time spent with patient Time with patient PN: 35 minutes - Physician Narrative Narrative: Date: 11/27/17 Time: 1836 Hospital Course Summary Disclaimer: The visit summary below is not to be considered part of the above Progress Note. Hospital Course: 11/24/2017 Agree with cautious IV fluids, IV Cipro and Flagyl. Monitor for GI bleeding. Await sensitivity of urine culture-Cipro will likely cover Escherichia coli UTI PT and OT consult SCDs for DVT prophylaxis-no Lovenox or heparin at this time because of history of GI bleeding with colitis 11/25/2017 Continue cautious IV fluids, IV Cipro and Flagyl. Monitor for GI bleeding. Case discussed with general surgeon on-call, Dr. Monroy and consult placed. Patient placed nothing by mouth. CT angiogram of abdomen and pelvis ordered. BUN 14, serum creatinine 0.9. We will stop Lovenox. Patient started on heparin 5000 units subcutaneous 3 times a day. UTI with pansensitive Escherichia coli on culture, continue ciprofloxacin IV. 11/26/2017 Continue cautious IV fluids, IV Cipro and Flagyl. Monitor for GI bleeding. Case discussed with general surgeon on-call, Dr. Monroy. Diet advance to clear liquids, and full liquids tonight as tolerated. Patient started on oral MiraLAX twice a day to assist with constipation. CT angiogram of abdomen and pelvis shows evidence of infectious versus inflammatory colitis, no evidence of obstruction or findings suggestive of ischemic colitis. Continue heparin 5000 units subcutaneous 2 times a day. UTI with pansensitive Escherichia coli on culture, continue ciprofloxacin IV. 11/27/2017 Continue cautious IV fluids, IV Cipro and Flagyl. Monitor for GI bleeding. After 4 days of constipation, patient finally had large volume bowel movement and GI panel showed positive Escherichia coli and C. difficile. Clinically, findings not concerning for C. difficile. We will continue antibiotics as above. General surgeon Dr. Monroy on board. Patient tolerating full liquids. Diet advanced to regular diet. CT angiogram of abdomen and pelvis performed on 11/25/2017 shows evidence of infectious versus inflammatory colitis, no evidence of obstruction or findings suggestive of ischemic colitis. Continue heparin 5000 units subcutaneous 2 times a day. UTI with pansensitive Escherichia coli on culture, continue ciprofloxacin IV.
[2017-11-28] MEDS: MetroNIDAZOLE PB 500 MG/100 ML BAG IV SCH ×2 (03:20→08:27)
[2017-11-28] MEDS: PANTOPRAZOLE 40 MG TABLET PO SCH (06:27)
[2017-11-28] MEDS: HEPARIN SUB-Q 5,000units/0.5ml INJECTION SQ SCH ×2 (08:27→22:49)
[2017-11-28] MEDS: POLYETHYL GLYCOL 3350 17gm PACKET PO SCH ×3 (08:27→22:56)
[2017-11-28] MEDS: CIPROFLOXACIN IVPB 400 MG/200 ML BAG IV SCH (11:11)
--- NOTE | 2017-11-28 11:30 | Progress Note ---
- Date 11/28/17 Subjective: Patient resting in bed at the time of interview, patient's family present at bedside. Diet progress to regular, patient tolerating diet although earlier this morning she had an episode of nausea, no episodes of vomiting. No reported abdominal discomfort, no diarrhea. WBC count 8200 this morning. Hemoglobin stable at 11. Patient has +1.4 L fluid balance although no significant edema in lower extremities, no reported shortness of breath or difficulty breathing. Objective Vital signs: Temperature 98.3 F 11/28/17 11:00 Pulse Rate 65 11/28/17 11:00 Respiratory Rate 16 11/28/17 11:00 Blood Pressure 135/65 11/28/17 11:00 Pulse Oximetry 91 11/28/17 11:00 Height/Weight/BMI: Height 1.57 m Weight 66.1 kg Body Mass Index 25.0 - Additional findings Additional findings: General: Alert, awake, oriented to self and place. Not in acute distress. Head: Pupils equal, round, reactive to light and accommodation. Extraocular movements intact. Neck: No elevation in JVP. No pharyngeal erythema noted. Chest: The patient does not use accessory muscles for breathing. Lungs: Breath sounds audible on auscultation bilateral lung kumar. No wheezing , no rhonchi, no crepitations, no crackles. No pleural rub. CVS: S1, S2 heard on auscultation. Normal rate and rhythm. No murmur, no S3/S4 gallops. Abdomen: Soft, not distended, nontender. Bowel sounds appreciated on auscultation.s. Skin: No rashes, no induration, no erythema. Capillary refill less than 4 seconds. Extremities: Trace pedal edema bilateral lower extremities. No calf tenderness bilaterally. Palpable dorsalis pedis and posterior tibial pulses bilateral lower extremities. Results - Labs CBC & Chem 7: 11/28/17 05:04 11/28/17 05:04 Microbiology Results: Microbiology 11/23/17 19:14 Urine, Voided (Cc/notcc) Urine Culture - Final Escherichia coli Assessment and Plan (1) Colitis Current visit: Yes Status: Acute (2) Urinary tract infection Current visit: Yes Status: Acute (3) HTN (hypertension) Current visit: Yes Status: Chronic Assessment and Plan: Left-sided infectious versus inflammatory colitis seen on CT abdomen UTI Hypertension Currently with borderline hypotension Gait instability-chronic Anemia Leukocytosis Mild hypoxia Plan IV fluids discontinued. We will stop IV Cipro and Flagyl. Patient will be started on oral ciprofloxacin and Flagyl. Monitor for GI bleeding. After 4 days of constipation, patient finally had large volume bowel movement and GI panel showed positive Escherichia coli toxin and C. difficile. We will continue antibiotics as above. General surgeon Dr. Monroy on board. Patient tolerating Regular diet. CT angiogram of abdomen and pelvis performed on 11/25/2017 shows evidence of infectious versus inflammatory colitis, no evidence of obstruction or findings suggestive of ischemic colitis. Continue heparin 5000 units subcutaneous 2 times a day. UTI with pansensitive Escherichia coli on culture, continue ciprofloxacin. PT and OT consult Will restart home medication hydrochlorothiazide Continue metoprolol succinate 25 mg by mouth daily Incentive Spirometer DVT Prophylaxis: SCD's, SQ Heparin GI Prophylaxis: Protonix Resuscitation Status: Do Not Resuscitate - Time spent with patient Time with patient PN: 25 minutes - Physician Narrative Narrative: Date: 11/28/17 Time: 1116 Hospital Course Summary Disclaimer: The visit summary below is not to be considered part of the above Progress Note. Hospital Course: 11/24/2017 Agree with cautious IV fluids, IV Cipro and Flagyl. Monitor for GI bleeding. Await sensitivity of urine culture-Cipro will likely cover Escherichia coli UTI PT and OT consult SCDs for DVT prophylaxis-no Lovenox or heparin at this time because of history of GI bleeding with colitis 11/25/2017 Continue cautious IV fluids, IV Cipro and Flagyl. Monitor for GI bleeding. Case discussed with general surgeon on-call, Dr. Monroy and consult placed. Patient placed nothing by mouth. CT angiogram of abdomen and pelvis ordered. BUN 14, serum creatinine 0.9. We will stop Lovenox. Patient started on heparin 5000 units subcutaneous 3 times a day. UTI with pansensitive Escherichia coli on culture, continue ciprofloxacin IV. 11/26/2017 Continue cautious IV fluids, IV Cipro and Flagyl. Monitor for GI bleeding. Case discussed with general surgeon on-call, Dr. Monroy. Diet advance to clear liquids, and full liquids tonight as tolerated. Patient started on oral MiraLAX twice a day to assist with constipation. CT angiogram of abdomen and pelvis shows evidence of infectious versus inflammatory colitis, no evidence of obstruction or findings suggestive of ischemic colitis. Continue heparin 5000 units subcutaneous 2 times a day. UTI with pansensitive Escherichia coli on culture, continue ciprofloxacin IV. 11/27/2017 Continue cautious IV fluids, IV Cipro and Flagyl. Monitor for GI bleeding. After 4 days of constipation, patient finally had large volume bowel movement and GI panel showed positive Escherichia coli and C. difficile. Clinically, findings not concerning for C. difficile. We will continue antibiotics as above. General surgeon Dr. Monroy on board. Patient tolerating full liquids. Diet advanced to regular diet. CT angiogram of abdomen and pelvis performed on 11/25/2017 shows evidence of infectious versus inflammatory colitis, no evidence of obstruction or findings suggestive of ischemic colitis. Continue heparin 5000 units subcutaneous 2 times a day. UTI with pansensitive Escherichia coli on culture, continue ciprofloxacin IV. 11/28/2017 IV fluids discontinued. We will stop IV Cipro and Flagyl. Patient will be started on oral ciprofloxacin and Flagyl. Monitor for GI bleeding. After 4 days of constipation, patient finally had large volume bowel movement and GI panel showed positive Escherichia coli toxin and C. difficile. We will continue antibiotics as above. General surgeon Dr. Monroy on board. Patient tolerating Regular diet. CT angiogram of abdomen and pelvis performed on 11/25/2017 shows evidence of infectious versus inflammatory colitis, no evidence of obstruction or findings suggestive of ischemic colitis. Continue heparin 5000 units subcutaneous 2 times a day. UTI with pansensitive Escherichia coli on culture, continue ciprofloxacin. PT and OT consult Will restart home medication hydrochlorothiazide Continue metoprolol succinate 25 mg by mouth daily Incentive Spirometer
[2017-11-28] MEDS: LR 1,000 ML IV SCH (13:45)
[2017-11-28] MEDS: MetroNIDAZOLE 500 MG TABLET PO SCH ×2 (16:23→22:49)
[2017-11-28] MEDS: CIPROFLOXACIN 500 MG TABLET PO SCH (22:49)
[2017-11-29] MEDS: PANTOPRAZOLE 40 MG TABLET PO SCH (06:31)
[2017-11-29] MEDS: CIPROFLOXACIN 500 MG TABLET PO SCH (08:58)
[2017-11-29] MEDS: MetroNIDAZOLE 500 MG TABLET PO SCH (08:59)
[2017-11-29] MEDS: HEPARIN SUB-Q 5,000units/0.5ml INJECTION SQ SCH (08:59)
[2017-11-29] MEDS: POLYETHYL GLYCOL 3350 17gm PACKET PO SCH (10:09)
[2017-11-29 11:20] VITALS: BP 148/74; PULSE 67; RESP 18; TEMP 97; O2SAT 95
--- NOTE | 2017-11-29 13:06 | Discharge Summary ---
Discharge Information Date of admission: 11/23/17 20:09 Anticipated date of discharge: 11/29/17 Attending Physician: Amanda Lo MD Primary care physician: Hayden Ruiz MD Consults: 11/25/17 16:56 Physician Consult [CONS] Routine Consulting Provider: Joe Monroy Reason For Exam: left-side colon Infectious versus ischemic colitis Ordering Provider has Notified Ur Coordinator: Yes 11/26/17 09:59 Physician Consult [CONS] Routine Consulting Provider: Shahnaz Werner Reason For Exam: prison Ordering Provider has Notified Ur Coordinator: Yes - Discharge Diagnosis (1) Colitis Status: Resolved (2) Urinary tract infection Status: Resolved (3) HTN (hypertension) Status: Chronic Gait instability-chronic Anemia Leukocytosis Nocturnal hypoxia, requires outpatient sleep study - Laboratory Labs: 11/29/17 09:47 11/29/17 09:47 - Microbiology Microbiology 11/23/17 19:14 Urine, Voided (Cc/notcc) Urine Culture - Final Escherichia coli - Radiology Radiology: CT abdomen and pelvis with contrast performed on 11/23/2017 Impression: Extensive left-sided colitis could be infectious, inflammatory or ischemic. CT angiogram abdomen and pelvis performed on 11/25/2017 Impression: No abdominal arterial occlusion or significant stenosis. No CT evidence of small or large bowel ischemia. The left colonic findings are most likely infectious or inflammatory. History of Present Illness HPI: The patient is an 87-year-old female who lives at home with her 2 dogs and 2 cats. She is from her . She has a history of hypertension and history of descending ischemic colitis with GI bleeding in 2010 and underwent EGD and colonoscopy at that time. She had apparently had a prior episode of massive GI bleeding but she is uncertain of the location of bleeding at that time. She states she was feeling well until yesterday afternoon when she started having abdominal cramping. She thinks she might of had some vomiting in the ambulance here. She states she had a constipated bowel movement yesterday but did not notice any blood. She states she feels tired out from taking care of her animals and is chronically a little "weak and wobbly". 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 She denies shortness of breath or chest pain. She denies recent fevers chills or sweats. She has nocturia which is chronic. She denies any dysuria. CT abdomen and pelvis with contrast yesterday showed extensive left-sided colitis which could be infectious, inflammatory or ischemic. UA also showed signs of infection and culture is revealing Escherichia coli. The patient did not have symptoms of UTI. The patient was admitted last night and placed on IV fluids and Cipro with Flagyl. She had some borderline low blood pressures in the mid 80s to mid 90s. This did respond to fluid bolus. Objective Vital signs: Temperature 97 F 11/29/17 11:18 Pulse Rate 67 11/29/17 11:18 Respiratory Rate 18 11/29/17 11:18 Blood Pressure 148/74 H 11/29/17 11:18 Pulse Oximetry 95 11/29/17 11:18 Height/Weight/BMI: Height 1.57 m Weight 65.4 kg Body Mass Index 25.0 - Additional findings Additional findings: General: Alert, awake, oriented to self and place. Not in acute distress. Head: Pupils equal, round, reactive to light and accommodation. Extraocular movements intact. Neck: No elevation in JVP. No pharyngeal erythema noted. Chest: The patient does not use accessory muscles for breathing. Lungs: Breath sounds audible on auscultation bilateral lung kumar. No wheezing , no rhonchi, no crepitations, no crackles. No pleural rub. CVS: S1, S2 heard on auscultation. Normal rate and rhythm. No murmur, no S3/S4 gallops. Abdomen: Soft, not distended, nontender. Bowel sounds appreciated on auscultation.s. Skin: No rashes, no induration, no erythema. Capillary refill less than 4 seconds. Extremities: No edema bilateral lower extremities. No calf tenderness bilaterally. Palpable dorsalis pedis and posterior tibial pulses bilateral lower extremities. Hospital Course This is a general summary of the patient's hospital course. For more details refer to the complete medical record. Hospital course: 11/24/2017 Agree with cautious IV fluids, IV Cipro and Flagyl. Monitor for GI bleeding. Await sensitivity of urine culture-Cipro will likely cover Escherichia coli UTI PT and OT consult SCDs for DVT prophylaxis-no Lovenox or heparin at this time because of history of GI bleeding with colitis 11/25/2017 Continue cautious IV fluids, IV Cipro and Flagyl. Monitor for GI bleeding. Case discussed with general surgeon on-call, Dr. Monroy and consult placed. Patient placed nothing by mouth. CT angiogram of abdomen and pelvis ordered. BUN 14, serum creatinine 0.9. We will stop Lovenox. Patient started on heparin 5000 units subcutaneous 3 times a day. UTI with pansensitive Escherichia coli on culture, continue ciprofloxacin IV. 11/26/2017 Continue cautious IV fluids, IV Cipro and Flagyl. Monitor for GI bleeding. Case discussed with general surgeon on-call, Dr. Monroy. Diet advance to clear liquids, and full liquids tonight as tolerated. Patient started on oral MiraLAX twice a day to assist with constipation. CT angiogram of abdomen and pelvis shows evidence of infectious versus inflammatory colitis, no evidence of obstruction or findings suggestive of ischemic colitis. Continue heparin 5000 units subcutaneous 2 times a day. UTI with pansensitive Escherichia coli on culture, continue ciprofloxacin IV. 11/27/2017 Continue cautious IV fluids, IV Cipro and Flagyl. Monitor for GI bleeding. After 4 days of constipation, patient finally had large volume bowel movement and GI panel showed positive Escherichia coli and C. difficile. Clinically, findings not concerning for C. difficile. We will continue antibiotics as above. General surgeon Dr. Monroy on board. Patient tolerating full liquids. Diet advanced to regular diet. CT angiogram of abdomen and pelvis performed on 11/25/2017 shows evidence of infectious versus inflammatory colitis, no evidence of obstruction or findings suggestive of ischemic colitis. Continue heparin 5000 units subcutaneous 2 times a day. UTI with pansensitive Escherichia coli on culture, continue ciprofloxacin IV. 11/28/2017 IV fluids discontinued. We will stop IV Cipro and Flagyl. Patient will be started on oral ciprofloxacin and Flagyl. Monitor for GI bleeding. After 4 days of constipation, patient finally had large volume bowel movement and GI panel showed positive Escherichia coli toxin and C. difficile. We will continue antibiotics as above. General surgeon Dr. Monroy on board. Patient tolerating Regular diet. CT angiogram of abdomen and pelvis performed on 11/25/2017 shows evidence of infectious versus inflammatory colitis, no evidence of obstruction or findings suggestive of ischemic colitis. Continue heparin 5000 units subcutaneous 2 times a day. UTI with pansensitive Escherichia coli on culture, continue ciprofloxacin. PT and OT consult Will restart home medication hydrochlorothiazide Continue metoprolol succinate 25 mg by mouth daily Incentive Spirometer 11/29/2017 Patient resting in bed at the time of interview. Afebrile for more than 72 hours. Patient noted to have episode of hypoxia on room air while sleeping with off and on episodes of loud snoring, may be a candidate for outpatient sleep study. The patient tolerating regular diet, no reported abdominal pain, no flank pain, no nausea, no vomiting, no diarrhea reported. GI panel performed on 11/27/2017 positive for C. difficile toxin, Escherichia coli Shiga toxin. Suspected colonizer as patient is asymptomatic at this point. regulatory product manager on board, patient evaluated by Ms. Basilio, home health was offered, patient declined. Patient is interested in Meals on Wheels option. regulatory product manager will assist patient with service and also with outpatient sleep study. Patient discharged on 3 day course of oral ciprofloxacin and Flagyl. We will provide MiraLAX by mouth as needed for constipation on discharge. Time spent with patient: discharge greater than 30 minutes Resuscitation Status: Do Not Resuscitate Discharge Plan - Discharge Disposition Discharge Date: 11/29/17 Disposition: 01 Discharged Home, Self-Care *Condition: Improved Reason For Visit (Visit label in EMR): Colitis with UTI - Discharge Medications *Discharge Medications: New Ciprofloxacin [Cipro 500 mg] 500 mg PO Q12HR #6 tab Pantoprazole Tab [Protonix Tab] 40 mg PO ACB #30 tab PEG 3350 17gm PACKET [Miralax] 17 gm PO DAILY PRN #15 packet PRN Reason: Constipation MetroNIDAZOLE [Flagyl] 500 mg PO TID #9 tab Continue Triamterene/Hctz 37.5/25 Tab [MAXZIDE-25 eqv] 1 tab PO DAILY Metoprolol Succinate [Toprol Xl] 25 mg PO DAILY - Discharge Packet/Instructions *Diet: Low-salt diet *Activity: As tolerated. Fall precautions with patient's history of chronic gait instability. *Pain Management/Treatment: As ordered by PCP *Wound Care: Not applicable *Expected Signs/Symptoms: Continued symptomatic improvement *Notify Physician if: Fever, chills, increased shortness of breath, intractable nausea, vomiting, abdominal pain, chest pain, palpitations, dizziness, blurred vision, diarrhea, fatigue, weakness, flank pain, dysuria, black tarry stools, bright red blood per rectum or any other concerning findings. *During Business Hours Contact: PCP, Dr. Guillen office *After Business Hours Contact: Call [facility] at [phone] and ask that the on-call physician be paged *Pending Lab/Results: No Pending Lab - Referrals/Follow Up *Referrals/Follow Up: Hayden Ruiz MD [Primary Care Provider] - Joe Monroy MD [Physician] - - Patient Handouts Patient Handouts: Urinary Tract Infection in Women (GEN), Colitis (ED) - Dismissal Complete Discharge Instructions are:: Complete Physician Narrative - Narrative Attestation Narrative: Date: 11/29/17 Time: 3514
== END 2017-11-29 14:20 | disposition home health service (06) | DRG 392 ==
LOC: ED 16:30 → SUATTDRO 20:09 → EDHOLD 20:09 → MED 20:45
PROVIDERS: ADMIT Hospitalist; ATTEND Internal Medicine